=== PATIENT | female | born 1965 | race Hispanic/Latino ===

== ENCOUNTER → 2017-10-13 07:24 | Outpatient (CLI) | payer OTHER, SELFPAY ==
--- NOTE | 2017-10-13 | DI.RAD.S_ITS ---
PROCEDURE: FL BARIUM SWALLOW INDICATIONS: 52 year-old female with pharyngeal solid food dysphagia. COMPARISON: None. FINDINGS: Function: There is normal esophageal peristalsis. There is small elicited gastroesophageal reflux to the midesophagus with patient rollover. There is normal transit of a calibrated barium tablet through the esophagus into the stomach. Morphology: Air-contrast images demonstrate normal mucosal morphology of the pharynx and esophagus. Single contrast views show no esophageal strictures, extrinsic mass effects, or diverticula. A small hiatal hernia is present. Limited images of the stomach demonstrate normal appearance. IMPRESSION: 1. Small hiatal hernia, along with small elicited gastroesophageal reflux to the midesophagus during the examination. 2. No mucosal abnormalities of the pharynx or esophagus. Dictated by: Osbaldo Rodriguez M.D. on 10/13/2017 at 8:54 Approved by: Osbaldo Rodriguez M.D. on 10/13/2017 at 8:57
== END ==
PROVIDERS: Visit Provider Internal Medicine
DX: K21.9 Gastro-esophageal reflux disease without esophagitis (principal); R13.12 Dysphagia, oropharyngeal phase; K44.9 Diaphragmatic hernia without obstruction or gangrene
CPT/HCPCS: 74220

== ENCOUNTER 2018-01-24 07:32 | Day surgery (SDC) | payer OTHER, SELFPAY ==
--- NOTE | 2018-01-24 | PATH_ITS ---
[facility] Accession Number: [id number] . 01 Material submitted: . PART A: TRANSVERSE COLON POLYP AT 60 PART B: ASCENDING COLON POLYP PART C: DISTAL TRANSVERSE COLON POLYPS X2 . 02 Diagnosis: A. Biopsy Transverse Colon Polyp at 60 cm: Tubular adenoma involving single biopsy fragment. . B. Biopsy Polyp Ascending Colon: Tubular adenoma involving both biopsy fragments. . C. Biopsy Distal Transverse Colon Polyps: Tubular adenoma involving single biopsy fragment. Single polypoid-shaped fragment of colon mucosa consistent with prolapsed inflammatory polyp, negative for atypia. MRV/01/25/2018 . 02 Electronically signed: . Lc Smiley MD, Pathologist NPI- [id number] . 01 Gross description: . Received three formalin-filled containers, each labeled with the patient's name: . A. In a container labeled transverse colon polyp at 60, are two 0.3-0.5 cm portions of tissue, entirely submitted in cassette A. B. In a container labeled ascending colon polyp, are two 0.2-0.3 cm portions of tissue, entirely submitted in cassette B. C. In a container labeled distal transverse polyps x2, are two 0.2-0.3 cm portions of tissue, entirely submitted in cassette C. ([id number]) /FRR . 02 Pathologist provided ICD-10: D12.2 . 02 CPT . 530092, 126359, 440959 Performed at: 01 [facility] [address] [id number] MD Lj Persaud MD Phone: [phone] Performed at: 02 [facility] [id number] [place] [id number] MD Edwar Quinteros MD Phone: [phone]
[2018-01-24 08:00] VITALS: BP 100/59; PULSE 74; RESP 15; TEMP 36.3; O2SAT 100
[2018-01-24] MEDS: SODIUM CHLORIDE 0.9% 1,000 ML 200 ML IV ×2 (08:00→11:23)
--- NOTE | 2018-01-24 11:04 | PM.HP.1 ---
History of Present Illness Date Patient Seen: 01/24/18 Time Patient Seen: 11:04 Chief complaint: colonoscopy [id number] Narrative: 52-year-old female who presents for colorectal screening. She has no history of any prior screening examination. On further history today she denies any gastrointestinal symptoms. No recent nausea, vomiting, anorexia, unintended weight loss, abdominal pain, change in bowel habits, diarrhea, constipation, melena, hematochezia, or bright red blood per rectum. Patient History Medical History Gastroesophageal reflux disease (Acute) History of ovarian cyst (Acute) Surgical History History of section (Acute) History of dilatation and curettage (Acute) History of oophorectomy, unilateral (Acute) Family & Social History Social History: household members spouse Meds Allergies Allergy/AdvReac Type Severity Reaction Status Date / Time No Known Drug Allergies Allergy Verified 01/24/18 08:15 Review of Systems Review of Systems All systems reviewed & are unremarkable except as noted in HPI and below Exam Vital Signs (past 8 hours): - 01/24/18 08:00 Temperature 97.4 F L Pulse Rate 74 Respiratory Rate 15 Blood Pressure 100/59 L Pulse Oximetry 100 Oxygen Delivery Method Room Air Narrative Exam Narrative: Well-nourished well-developed female in no acute distress. Alert oriented x3. is at the bedside for my entire visit. Sclera nonicteric Neck is supple Regular rate and rhythm Abdomen soft, nondistended, nontender, no masses Extremities show no clubbing, cyanosis, or edema Objective Labs Labs: No recent laboratory studies or radiographic studies for review Assessment & Plan Plan: Assessment/Plan Narrative: 52-year-old female requiring colorectal screening by age criteria. Colonoscopy is recommended. Technical details of the procedure were discussed. Risks, benefits, alternatives were explained. Risks including but not limited to sedation, aspiration, bleeding, pain, missed lesion, incomplete examination, need for further radiographic studies, colonic perforation, need for major abdominal surgery, and all attendant risks of major surgery were explained at length. All questions were answered to her satisfaction, and she voiced understanding. Consent was placed on the chart. We will proceed as above.
--- NOTE | 2018-01-24 11:08 | PM.PREOP ---
Pre-operative Note Interval Note Pre-op Check: Yes History & Physical Reviewed by Physician, Yes Exam Performed and Yes History & Physical exam performed today by Physician Changes: No H&P completed within 30 days and has changed as indicated here:: Patient seen and examined today. Proceed with colonoscopy for colorectal screening purposes. History and physical examination documented and placed on the chart today. ASA Class (for procedural sedation): I
[2018-01-24] MEDS: MIDAZOLAM 5 MG/5 ML VIAL IV (11:15)
[2018-01-24] MEDS: fentaNYL 250 MCG/5 ML INJ IV (11:16)
--- NOTE | 2018-01-24 11:37 | PM.OP.ENDO ---
Operative Date/Time/Diagnoses Date of procedure: 01/24/18 Time of procedure: 11:37 Pre-op diagnosis: Colorectal screening Post-op diagnosis: other (Multiple colon polyps) Procedure & Clinicians Study performed: 1. Sedation per surgeon 2. Colonoscopy with cold forceps polypectomies Same procedure as scheduled: Yes Indications: 52-year-old female who presents for colorectal screening. Colonoscopy is recommended. Surgeon: Paco Mar Procedure Notes SCOAP/Timeout: Yes Procedure in detail: After obtaining informed consent, the patient was brought to the GI suite and placed in the left lateral decubitus position on the examination table. After placement of appropriate monitors, the patient was given incremental doses of Versed and Fentanyl until an appropriate level of sedation was achieved. A time out was held per SCOAP protocol. A digital rectal examination was performed and did not reveal any masses or obstructing lesions. The colonoscope was gently passed into the patient's anus and the entire colon navigated to the level of the cecum with minimal difficulty. Terminal ileum was intubated and noted to be grossly normal. Once in the cecum, the scope was withdrawn being sure to go before and beyond all mucosal folds and prominences and get an excellent examination. The findings are noted above. At the level of the rectal vault, the scope was retroflexed and the internal anal canal was examined. The scope was straightened and air aspirated from the colon. The instrument was removed from the patient's body and the procedure was concluded. The patient was allowed to awaken from sedation without difficulty and taken to the post-anesthesia care unit in good condition. Scope withdrawal time: 12:53 min Sedation minutes: 27 Findings: polyp Specimen(s): other (1. Transverse colon polyp at 60 cm in 2. Ascending colon polyp 3. Distal transverse colon polyps x2) Complications: none Recommendations: Colonscopy in 5 years, High fiber diet and Will call with biopsy results Plan for aftercare: 1. Discharge to home Follow up: as needed Disposition: PACU
[2018-01-24 11:43] VITALS: BP 96/59; PULSE 78; RESP 10; TEMP 36.6; O2SAT 100
[2018-01-24 11:46] VITALS: BP 95/59; PULSE 86; RESP 9; O2SAT 100
[2018-01-24 11:50] VITALS: BP 95/59; PULSE 79; RESP 10; TEMP 36.7; O2SAT 100
[2018-01-24 12:01] VITALS: BP 100/59; PULSE 74; RESP 15; TEMP 36.3; O2SAT 100
== END 2018-01-24 12:12 | disposition home or self-care (01) ==
PROVIDERS: Visit Provider Surgery
PROC: 0DJD8ZZ Inspection of Lower Intestinal Tract, Via Natural or Artificial Opening Endoscopic (ICD-10-PCS; CPT 45378; principal; 2018-01-24 09:45)
DX: Z12.11 Encounter for screening for malignant neoplasm of colon (principal); D12.3 Benign neoplasm of transverse colon; D12.2 Benign neoplasm of ascending colon
CPT/HCPCS: 45380; 99152; 99153; J2250; J3010

== ENCOUNTER 2022-01-06 05:55 | Day surgery (SDC) | payer OTHER, MEDICAID, SELFPAY ==
[2021-12-26 13:11] VITALS: BMI 19.8
[2022-01-06] VITALS (7 sets, daily range): BP systolic 90–115; BP diastolic 33–73; PULSE 60–80; RESP 15–16; TEMP 35.9–37; O2SAT 99–100; BMI 19.8
--- NOTE | 2022-01-06 | PATH_ITS ---
[facility] Accession Number: [id number] . 01 Material submitted: . gallbladder - GALLBLADDER . 01 Diagnosis: Gallbladder, Cholecystectomy: Chronic cholecystitis and cholelithiasis. V 01/08/2022 1134 Local . 01 Electronically signed: . Kamilla Olson MD, Pathologist NPI- [id number] . 01 Gross description: . Received in formalin labeled with the patient's name and gallbladder consists of an intact gallbladder measuring 6.5 x 2.3 x 2.3 cm. The serosa is green and smooth while the hepatic surface is rough and unremarkable. The cystic duct is received closed with a clip, is inked blue, and no pericystic lymph node is identified. Opening the specimen reveals multiple black, roughened calculi obstructing the cystic duct measuring up to 1.1 cm in greatest dimension, along with dark green viscous bile. The mucosa is dark green and velvety with no areas of discoloration, polyps or lesions identified, and the [place] average 0.2 cm thick. [employer] sections to include the cystic duct margin and full-thickness sections are submitted in cassette A1. ([id number]) /V 01/07/2022 1821 Local . 01 Pathologist provided ICD-10: K81.1, K80.10 . 01 CPT . 125317 Specimen Comment: A courtesy copy of this report has been sent to [phone] Performed at: 01 [facility] [address] [place] [id number] MD Lj Persaud MD Phone: [phone]
[2022-01-06] MEDS: LACTATED RINGERS 1,000 ML 100 ML IV (07:07)
[2022-01-06 07:20] LABS: COVID19 -Nasal RAPID Negative (Negative)
[2022-01-06] MEDS: ACETAMINOPHEN 325 MG TABLET 650 MG PO (07:47)
--- NOTE | 2022-01-06 07:49 | PM.HP.1 ---
History of Present Illness History of Present Illness Date Patient Seen: 01/06/22 Time Patient Seen: 07:49 Chief complaint: SDC Narrative: Tasha is a 56-year-old woman with gallstones, symptomatic cholelithiasis. See the office note from October for more details. Patient History Medical History (Updated 12/26/21 @ 13:15 by Margie Mckeon RN) Arthritis Elevated cholesterol Gastroesophageal reflux disease Headache, migraine History of ovarian cyst History of UTI Kidney stones Surgical History History of section History of dilatation and curettage History of oophorectomy, unilateral History of right oophorectomy (~2009) Family & Social History Social History: household members spouse Tobacco & Substance use: Smoking Status Former smoker alcohol intake current alcohol intake frequency 0-2 drinks per day Substance Use Type does not use Meds Home Medications and Allergies Home Medications Medication Instructions Recorded Confirmed Type aspirin 81 mg capsule 81 mg DAILY 01/06/22 01/06/22 History multivitamin 1 tab DAILY 01/06/22 01/06/22 History Allergies Allergy/AdvReac Type Severity Reaction Status Date / Time No Known Drug Allergies Allergy Verified 01/06/22 06:40 Exam Vital Signs (past 8 hours): - 01/06/22 06:47 Temperature 98.6 F Pulse Rate 73 Respiratory Rate 16 Blood Pressure 115/73 Pulse Oximetry 100 Oxygen Delivery Method Room Air Oxygen Delivery Method Room Air Const General: comfortable Resp Effort & Inspection: normal respiratory effort Objective Labs Labs: Laboratory Results - last 24 hr 01/06/22 06:30 SARS-CoV-2 (PCR) Negative Assessment & Plan Assessment and plan (1) Cholelithiasis: Qualifiers: Cholelithiasis location: gallbladder Cholecystitis presence: without cholecystitis Biliary obstruction: without biliary obstruction Qualified Code(s): K80.20 - Calculus of gallbladder without cholecystitis without obstruction Status: Acute Plan 56-year-old woman with gallstones. We reviewed the risks and benefits of laparoscopic cholecystectomy and she would like to proceed. Time Spent With Patient Critical Care time: I spent a total of [] minutes of critical care time on this patient's care today; this time is exclusive of procedural time.
[2022-01-06] MEDS: CEFAZOLIN 2 GM/100 ML PREMIX 100 ML IV (07:57)
[2022-01-06] MEDS: LIDOCAINE 1% W/EPI 20 ML INJ (08:14)
[2022-01-06] MEDS: BUPIVACAINE 0.5% (PF) VIAL 30 ML INJ (08:14)
--- NOTE | 2022-01-06 08:33 | SUR.OPER ---
Supine on padded OR bed, head on pillow, safety belt at thigh, left arm padded and tucked at side. Right arm secured on padded arm board <90 degrees abduction. Legs uncrossed. Padded footboard in place. Tape over blanket to secure lower legs. Position approved by anesthesia and surgeon
--- NOTE | 2022-01-06 09:19 | P.OP_ITS ---
Operative Date/Time/Diagnoses Date of procedure: 01/06/22 Time of procedure: 09:31 Pre-op diagnosis: Symptomatic cholelithiasis Post-op diagnosis: same Procedure & Clinicians Procedure: Laparoscopic cholecystectomy Same procedure as scheduled: Yes Surgeon: Pablo Daniels Operative Notes Procedure in detail: The patient was given preoperative antibiotic. The patient was brought to the operating room, placed on the table in the supine position. General endotracheal anesthesia was induced. The abdomen was prepped and draped. A time-out was performed. We made a 1 cm infraumbilical incision where a prior scar was located. We dissected down to the base of the umbilical stalk using cautery. We grasped the umbilical stalk with a Frank clamp to elevate the abdominal wall. We scored the fascia in the midline with cautery 1 cm. We pierced the peritoneum with a Peon clamp. The Nain port was placed and the abdomen was insufflated to 15 mmHg. A 5 mm 30 degree laparoscopic was inserted. There was no evidence of any injury from the entry. Next, we placed 5 mm ports in the subxiphoid position and right upper quadrant at the midclavicular line and anterior axillary line. Patient was then positioned in reverse Trendelenburg and the table was tilted to the left. The gallbladder was grasped at the dome and retracted cephalad. There were some adhesions of mesenteric tissue to the right liver which were carefully dissected with cautery to allow full retraction of the gallbladder. We then dissected the cystic structures with a combination of hook cautery and blunt dissection. We obtained a critical view. We placed clips on the cystic duct and 2 branches of the cystic artery and divided the cystic duct and artery sharply between the clips. There was some bleeding from the main branch of the cystic artery and a third clip was applied to achieve hemostasis. The gallbladder was then dissected off the liver and placed in a specimen retrieval bag. We irrigated the right upper quadrant and all the aspirate returned clear. We then removed the [address] vision we removed the Nain port. We then injected some local into the fascia and closed the fascia with 2 interrupted 0 Vicryl sutures. The skin incisions were closed with 4-0 Monocryl and Steri-Strips were applied. Band- Aids were applied over the Steri-Strips. EBL: 50 mL Specimen: Gallbladder Post-operative Condition: stable Disposition: PACU
[2022-01-06] MEDS: OXYCODONE IR 5 MG TABLET PO (09:50)
[2022-01-06] MEDS: ONDANSETRON 4 MG/2 ML INJ IV (09:52)
== END 2022-01-06 10:28 | disposition home or self-care (01) ==
PROVIDERS: PCP Nurse Practitioner; Referring Provider Surgery; Visit Provider Surgery
PROC: 0FT44ZZ Resection of Gallbladder, Percutaneous Endoscopic Approach (ICD-10-PCS; CPT 47562; principal; 2022-01-06 07:45)
DX: K80.10 Calculus of gallbladder with chronic cholecystitis without obstruction (principal); K21.9 Gastro-esophageal reflux disease without esophagitis
CPT/HCPCS: 47562; 87635; 99281; C9803; J0330; J0690; J1100; J1885; J2250; J2405; J2704; J3010

== ENCOUNTER 2022-01-06 18:49 | Emergency (ER) | payer OTHER, MEDICAID, SELFPAY ==
[2022-01-06 19:01] VITALS: BP 122/72; PULSE 76; RESP 16; TEMP 36.9; O2SAT 97; BMI 19.8
--- NOTE | 2022-01-06 20:16 | ED.RECABL ---
HPI - Recheck/Abnormal Lab/Rx General Chief Complaint: Recheck/Abnormal Lab/Rx Stated Complaint: Bleeding from incision site Time Seen by Provider: 01/06/22 19:27 History of Present Illness HPI narrative: 56-year-old woman who had a laparoscopic cholecystectomy with Dr. Daniels this morning. Was doing well and then noticed quite a bit of bleeding from the right trocar site. It has not resolved with pressure. She is not having any pain, dizziness, hypotension but comes in for further evaluation. Related Data Home Medications Medication Instructions Recorded Confirmed aspirin 81 mg capsule 81 mg DAILY 01/06/22 01/06/22 multivitamin 1 tab DAILY 01/06/22 01/06/22 Previous Rx's Medication Instructions Recorded hydrocodone 5 mg-acetaminophen 325 1 tab PO Q8H PRN pain #10 tabs 01/06/22 mg tablet Allergies Allergy/AdvReac Type Severity Reaction Status Date / Time No Known Drug Allergies Allergy Verified 01/06/22 06:40 Patient History Medical History (Updated 01/06/22 @ 20:20 by Jenniffer Nguyen MD) Arthritis Elevated cholesterol Gastroesophageal reflux disease Headache, migraine History of ovarian cyst History of UTI Kidney stones Surgical History (Updated 01/06/22 @ 20:17 by Jenniffer Nguyen MD) History of section History of dilatation and curettage History of oophorectomy, unilateral History of right oophorectomy (~2009) Hx of cholecystectomy Social History household members: spouse Smoking Status: Former smoker alcohol intake: current Smoking Status: Former smoker alcohol intake frequency: 0-2 drinks per day Substance Use Type: does not use Exam Initial Vital Signs Initial Vital Signs: Vital Signs Temperature 98.4 F 01/06/22 19:01 Pulse Rate 76 01/06/22 19:01 Respiratory Rate 16 01/06/22 19:01 Blood Pressure 122/72 01/06/22 19:01 Pulse Oximetry 97 01/06/22 19:01 Oxygen Delivery Method 01/06/22 19:01 General: Alert appropriate in no acute distress Respiratory: Able to speak in full sentences, no obvious respiratory distress Skin: No obvious rashes, warm and dry Abdomen: Surgical dressings in place. The right-sided trocar wound with continued bleeding, developing hematoma around the area, no redness and not tender. Neurologic: Grossly intact no obvious asymmetries or abnormalities Psych: appropriate insight and affect, cooperative Procedures Laceration Repair Bleeding from surgical trocar site, right side the abdomen: Local Anesthetic: lidocaine 1% and with epi Amount of anesthesia used (mL): 2 Pre-repair: wound explored and deep structures intact Skin layer closed with: nylon Skin layer suture size: 3-0 Number of sutures: 1 Technique: horizontal mattress (For hemostasis. Hemostasis obtained.) Course Vital Signs Vital signs: Vital Signs - 8 hr 01/06/22 19:01 Temperature 98.4 F Pulse Rate 76 Respiratory Rate 16 Blood Pressure 122/72 Pulse Oximetry 97 Oxygen Delivery Method Room Air MDM - Recheck/Abnormal Lab/Rx MDM Narrative Medical decision making narrative: Post cholecystectomy this morning with bleeding from the right trocar site. It is not stopping with pressure it does appear to be superficial she is not having intra-abdominal pain. It a single deep horizontal stitch was placed with 3-0 nylon for hemostasis and glue was placed over the wound itself. Briefly reviewed with Dr. Daniels and he will follow-up. Patient is safe for discharge Discharge Plan Departure Patient Disposition: Home Clinical Impression: Post-op bleeding Qualifiers: Surgical complication system/body Area: digestive system Procedure type: digestive system Qualified Code(s): K91.840 - Postprocedural hemorrhage of a digestive system organ or structure following a digestive system procedure Activity Restrictions/Additional Instructions: Thank you for coming in today The small trocar site was bleeding a bit, it was all quite superficial. I put a deeper stitch in and re-glued the skin itself. The bleeding seems to be controlled. I did talk to Dr. Daniels and he is aware of the ER visit. Please call his office tomorrow to see when he would like to see you to removed that external suture. I wish you the best Prescriptions: No Action aspirin 81 mg Capsule 81 mg DAILY multivitamin 1 tab DAILY hydrocodone-acetaminophen 5-325 mg tablet 1 tab PO Q8H PRN (Reason: pain) Qty: 10 0RF Referrals: Cassy Voss ARNP [Primary Care Provider] - Visit Report Forms: Patient Portal/API
== END 2022-01-06 20:25 | disposition home or self-care (01) ==
PROVIDERS: Emergency Provider Emergency Medicine; PCP Nurse Practitioner
DX: K91.840 Postprocedural hemorrhage of a digestive system organ or structure following a digestive system procedure (principal)

== ENCOUNTER 2022-01-15 10:54 | Emergency (ER) | payer OTHER, MEDICAID, SELFPAY ==
[2022-01-15] VITALS (7 sets, daily range): BP systolic 111–151; BP diastolic 59–92; PULSE 61–76; RESP 16–20; TEMP 36.7; O2SAT 99–100; BMI 19.8
[2022-01-15 11:50] LABS: Add Manual Diff / Slide Review NO; Basophils Absolute Auto 0 /uL (0-100); Basophils Percent Auto 0.8 % (0-2); Eosinophils Absolute Auto 100 /uL (0-450); Eosinophils Percent Auto 2.4 % (2-4); Hematocrit 40.7 % (36-46); Hemoglobin 13.9 g/dL (12.0-16.0); Lymphocytes Absolute Auto 1500 /uL (1100-4500); Lymphocytes Percent Auto 24.6 % (25-40); Mean Corpuscular HGB Conc 34.3 % (30-36); Mean Corpuscular Volume 90.5 fL (80-100); Monocytes Absolute Auto 500 /uL (0-900); Monocytes Percent Auto 7.9 % (3-14); Neutrophils Absolute Auto 3900 /uL (1500-7000); Neutrophils Percent Auto 64.3 % (50-75); Platelet Count 246 X10^3/uL (150-400); Red Cell Distribution Width 12.5 % (11.6-14.8)
[2022-01-15 12:03] LABS: Alanine Aminotransferase 49 IU/L (<35); Albumin 4.6 g/dL (3.5-5.0); Albumin Globulin Ratio 1.4 (1.0-2.8); Alkaline Phosphatase 64 U/L (38-126); Aspartate Aminotransferase 70 IU/L (14-36); BUN Creatinine Ratio 17.5 (6-22); Bilirubin Total 0.5 mg/dL (0.2-1.3); Blood Urea Nitrogen 11 mg/dL (7-17); Calcium 9.4 mg/dL (8.4-10.2); Carbon Dioxide 29 mmol/L (22-32); Chloride 102 mmol/L (98-107); Estimated Glomerular Filt Rate > 60 mL/min (>60); Globulin 3.4 g/dL (1.7-4.1); Glucose 78 mg/dL (70-100); HEMOLYSIS < 15 (0-50); Lipase 226 U/L (23-300); Sodium 141 mmol/L (137-145)
--- NOTE | 2022-01-15 12:27 | DI.US.S_ITS ---
PROCEDURE: US ABDOMEN LIMITED INDICATIONS: PAIN 9 DAYS POST DARCIE TECHNIQUE: Real-time focused scanning was performed of the abdomen, with image documentation. COMPARISON: None. FINDINGS: Liver measures 12.9 cm. There are 2 foci of decreased echogenicity within the posterior right lobe the largest measuring 2.0 x 2.0 x 1.8 cm. Gallbladder is surgically absent. No fluid identified within the gallbladder fossa. Common bile duct measures 5.3 cm. IMPRESSION: Cholecystectomy without fluid in the gallbladder fossa. Simple hepatic cysts. Dictated by: Concepcion Mejia M.D. on 01/15/2022 at 13:09 Approved by: Concepcion Mejia M.D. on 01/15/2022 at 13:10
[2022-01-15] MEDS: ACETAMINOPHEN 325 MG TABLET 650 MG PO (13:18)
[2022-01-15] MEDS: KETOROLAC 30 MG/ML VIAL 15 MG IM (13:19)
[2022-01-15 14:06] LABS: Appearance Urine UA CLEAR; Bilirubin Urine UA NEGATIVE (NEGATIVE); Color Urine UA YELLOW; Glucose Urine UA NEGATIVE (Negative); Ketones Urine UA NEGATIVE (NEGATIVE); Leukocyte Esterase Urine UA NEGATIVE (NEGATIVE); Nitrite Urine UA NEGATIVE (Negative); Occult Blood Urine UA TRACE-LYSED (Negative); Protein Urine UA NEGATIVE (Negative); Urobilinogen Urine UA 0.2 E.U./dL (0.2)
--- NOTE | 2022-01-15 14:07 | ED.ABDPAIN ---
HPI - Abdominal Pain <ARIS Panda - Last Filed: 01/20/22 18:49> General Chief Complaint: Abdominal Pain Stated Complaint: Not feeling well post gallbladder surg on 01/06 Time Seen by Provider: 01/15/22 12:27 Source: patient Mode of arrival: Family Vehicle Related Data Home Medications Medication Instructions Recorded Confirmed aspirin 81 mg capsule 81 mg DAILY 01/06/22 01/06/22 multivitamin 1 tab DAILY 01/06/22 01/06/22 Previous Rx's Medication Instructions Recorded hydrocodone 5 mg-acetaminophen 325 1 tab PO Q8H PRN pain #10 tabs 01/06/22 mg tablet mupirocin 2 % topical ointment 1 applic topical DAILY #15 grams 01/15/22 Allergies Allergy/AdvReac Type Severity Reaction Status Date / Time No Known Drug Allergies Allergy Verified 01/06/22 06:40 Patient History <ARIS Panda - Last Filed: 01/20/22 18:49> Medical History (Updated 01/15/22 @ 14:18 by ARIS Panda) Arthritis Elevated cholesterol Gastroesophageal reflux disease Headache, migraine History of ovarian cyst History of UTI Kidney stones Surgical History (Updated 01/15/22 @ 14:18 by ARIS Panda) History of section History of dilatation and curettage History of oophorectomy, unilateral History of right oophorectomy (~2009) Hx of cholecystectomy Social History household members: spouse Smoking Status: Former smoker alcohol intake: current Smoking Status: Former smoker tobacco type: cigarettes alcohol intake frequency: holidays/special occasions only Substance Use Type: does not use Exam <ARIS Panda - Last Filed: 01/20/22 18:49> Initial Vital Signs Initial Vital Signs: Vital Signs Temperature 98.1 F 01/15/22 11:07 Pulse Rate 76 01/15/22 11:07 Respiratory Rate 16 01/15/22 11:07 Blood Pressure 151/92 H 01/15/22 11:07 Pulse Oximetry 100 01/15/22 11:07 Oxygen Delivery Method 01/15/22 11:07 <Katelynn Chadwick DO - Last Filed: 01/20/22 19:19> Initial Vital Signs Initial Vital Signs: Vital Signs Temperature 98.1 F 01/15/22 11:07 Pulse Rate 76 01/15/22 11:07 Respiratory Rate 16 01/15/22 11:07 Blood Pressure 151/92 H 01/15/22 11:07 Pulse Oximetry 100 01/15/22 11:07 Oxygen Delivery Method 01/15/22 11:07 Course <ARIS Panda - Last Filed: 01/20/22 18:49> Orders Ordered: Discontinued Medications Acetaminophen (Acetaminophen 325 Mg Tablet) 650 mg PO NOW ONE Stop: 01/15/22 13:04 Last Admin: 01/15/22 13:18 Dose: 650 mg Documented By: IMELDA Ketorolac Tromethamine (Ketorolac 30 Mg/Ml Vial) 15 mg IM NOW ONE Stop: 01/15/22 13:04 Last Admin: 01/15/22 13:19 Dose: 15 mg Documented By: IMELDA Vital Signs Vital signs: Vital Signs - 8 hr 01/15/22 11:07 01/15/22 12:30 01/15/22 12:30 Temperature 98.1 F Pulse Rate 76 70 Respiratory Rate 16 Blood Pressure 151/92 H 127/59 L Pulse Oximetry 100 99 Oxygen Delivery Method Room Air <Katelynn Chadwick DO - Last Filed: 01/20/22 19:19> Orders Ordered: Discontinued Medications Acetaminophen (Acetaminophen 325 Mg Tablet) 650 mg PO NOW ONE Stop: 01/15/22 13:04 Last Admin: 01/15/22 13:18 Dose: 650 mg Documented By: IMELDA Ketorolac Tromethamine (Ketorolac 30 Mg/Ml Vial) 15 mg IM NOW ONE Stop: 01/15/22 13:04 Last Admin: 01/15/22 13:19 Dose: 15 mg Documented By: SB Vital Signs Vital signs: Vital Signs - 8 hr 01/15/22 11:07 01/15/22 12:30 01/15/22 12:30 Temperature 98.1 F Pulse Rate 76 70 Respiratory Rate 16 Blood Pressure 151/92 H 127/59 L Pulse Oximetry 100 99 Oxygen Delivery Method Room Air MDM - Abdominal Pain <ARIS Panda - Last Filed: 01/20/22 18:49> Lab Data Result diagrams: 01/15/22 11:35 01/15/22 11:35 Labs: Lab Results 01/15/22 01/15/22 01/15/22 Range/Units 11:35 11:35 11:35 WBC 6.0 (4.5-11.0) X10^3/uL RBC 4.50 (4.0-5.2) X10^6/uL Hgb 13.9 (12.0-16.0) g/dL Hct 40.7 (36-46) % MCV 90.5 (80-100) fL MCH 31.0 (26-34) PG MCHC 34.3 (30-36) % RDW 12.5 (11.6-14.8) % Plt Count 246 (150-400) X10^3/uL Neut % (Auto) 64.3 (50-75) % Lymph % (Auto) 24.6 L (25-40) % Schleicher % (Auto) 7.9 (3-14) % Eos % (Auto) 2.4 (2-4) % Baso % (Auto) 0.8 (0-2) % Neut # (Auto) 3900 (1121-9986) /uL Lymph # (Auto) 1500 (5363-7488) /uL Schleicher # (Auto) 500 (0-900) /uL Eos # (Auto) 100 (0-450) /uL Baso # (Auto) 0 (0-100) /uL Sodium 141 (137-145) mmol/L Potassium 4.0 (3.4-5.1) mmol/L Chloride 102 (98-107) mmol/L Carbon Dioxide 29 (22-32) mmol/L BUN 11 (7-17) mg/dL Creatinine 0.63 (0.52-1.04) mg/dL Estimated GFR > 60 (>60) mL/min BUN/Creatinine Ratio 17.5 (6-22) Glucose 78 (70-100) mg/dL Lactate 1.8 (0.7-2.1) mmol/L Calcium 9.4 (8.4-10.2) mg/dL Total Bilirubin 0.5 (0.2-1.3) mg/dL AST 70 H (14-36) IU/L ALT 49 H (<35) IU/L Alkaline Phosphatase 64 (38-126) U/L C-Reactive Protein (<1.0) mg/dL Total Protein 8.0 (6.3-8.2) g/dL Albumin 4.6 (3.5-5.0) g/dL Globulin 3.4 (1.7-4.1) g/dL Albumin/Globulin Ratio 1.4 (1.0-2.8) Lipase 226 (23-300) U/L Procalcitonin (<0.5) ng/mL Urine Color Urine Appearance Urine pH (4.5-8.0) Ur Specific Hart (1.000-1.035) Urine Protein (Negative) Urine Glucose (UA) (Negative) g/dL Urine Ketones (NEGATIVE) Urine Occult Blood (Negative) Urine Nitrate (Negative) Urine Bilirubin (NEGATIVE) Urine Urobilinogen (0.2) E.U./dL Ur Leukocyte Esterase (NEGATIVE) Urine RBC (0-5/HPF) Urine WBC (0-5/HPF) Ur Squamous Epith Cells (0-5/HPF) Urine Bacteria (None) Ur Culture Indicated? 01/15/22 01/15/22 01/15/22 Range/Units 11:35 11:35 13:30 WBC (4.5-11.0) X10^3/uL RBC (4.0-5.2) X10^6/uL Hgb (12.0-16.0) g/dL Hct (36-46) % MCV (80-100) fL MCH (26-34) PG MCHC (30-36) % RDW (11.6-14.8) % Plt Count (150-400) X10^3/uL Neut % (Auto) (50-75) % Lymph % (Auto) (25-40) % Schleicher % (Auto) (3-14) % Eos % (Auto) (2-4) % Baso % (Auto) (0-2) % Neut # (Auto) (8043-3713) /uL Lymph # (Auto) (3230-4351) /uL Schleicher # (Auto) (0-900) /uL Eos # (Auto) (0-450) /uL Baso # (Auto) (0-100) /uL Sodium (137-145) mmol/L Potassium (3.4-5.1) mmol/L Chloride (98-107) mmol/L Carbon Dioxide (22-32) mmol/L BUN (7-17) mg/dL Creatinine (0.52-1.04) mg/dL Estimated GFR (>60) mL/min BUN/Creatinine Ratio (6-22) Glucose (70-100) mg/dL Lactate (0.7-2.1) mmol/L Calcium (8.4-10.2) mg/dL Total Bilirubin (0.2-1.3) mg/dL AST (14-36) IU/L ALT (<35) IU/L Alkaline Phosphatase (38-126) U/L C-Reactive Protein < 0.5 (<1.0) mg/dL Total Protein (6.3-8.2) g/dL Albumin (3.5-5.0) g/dL Globulin (1.7-4.1) g/dL Albumin/Globulin Ratio (1.0-2.8) Lipase (23-300) U/L Procalcitonin < 0.03 (<0.5) ng/mL Urine Color Yellow Urine Appearance Clear Urine pH 7.0 (4.5-8.0) Ur Specific Hart 1.010 (1.000-1.035) Urine Protein Negative (Negative) Urine Glucose (UA) Negative (Negative) g/dL Urine Ketones Negative (NEGATIVE) Urine Occult Blood Trace-lysed (Negative) Urine Nitrate Negative (Negative) Urine Bilirubin Negative (NEGATIVE) Urine Urobilinogen 0.2 (0.2) E.U./dL Ur Leukocyte Esterase Negative (NEGATIVE) Urine RBC 0-1/hpf (0-5/HPF) Urine WBC None seen (0-5/HPF) Ur Squamous Epith Cells None seen (0-5/HPF) Urine Bacteria None seen (None) Ur Culture Indicated? Cult not indicated Point of care testing: Urine Dip Bedside Urine Glucose Negative Bedside Urine Bilirubin - Negative Bedside Urine Ketone - Negative Urine Specific Hart 1.015 Bedside Urine Occult Blood - Negative Bedside Urine pH 7.0 Bedside Urine Protein - Negative Bedside Urine Urobilinogen - Negative Bedside Urine Nitrite - Negative Bedside Urine Leukocytes - Negative Esterase Imaging Data US - abdomen: Radiologist's Impression: PROCEDURE: US ABDOMEN LIMITED ? INDICATIONS:? PAIN 9 DAYS POST DARCIE ? TECHNIQUE:? Real-time focused scanning was performed of the abdomen, with image documentation.? ? COMPARISON:? None. ? FINDINGS:? Liver measures 12.9 cm.? There are 2 foci of decreased echogenicity within the posterior right lobe the largest measuring 2.0 x 2.0 x 1.8 cm.? Gallbladder is surgically absent.? No fluid identified within the gallbladder fossa.? Common bile duct measures 5.3 cm. ? IMPRESSION:? ? Cholecystectomy without fluid in the gallbladder fossa.? ? ? Simple hepatic cysts.? ? Dictated by: Concepcion Mejia M.D. on 01/15/2022 at 13:09 ? ? Approved by: Concepcion Mejia M.D. on 01/15/2022 at 13:10 ? [facility] Narrative Medical decision making narrative: This is a 56-year-old female who presents to the emergency department status post laparoscopic cholecystectomy on 01/09/2022 with chief complaint of fatigue and poor appetite and denies any fever, chills, dysuria, nausea vomiting, changes to her stool or other focal complaint. Her urine today was negative for WBCs, leukocyte esterase or RBCs, lab work overall is unremarkable, she has mildly elevated AST and ALT of 70 and 49 respectively without any priors to compare to, CRP is less than 0.5, procalcitonin, and no leukocytosis, anemia, or point tenderness on exam. She had an ultrasound of her right upper quadrant today which is negative for fluid within the gallbladder fossa, common bile duct measures 5.3 cm, it also showed status post cholecystectomy. Liver measured 12.9 cm. Encourage patient to use Tylenol as needed for pain, she denies any epigastric pain, heartburn symptoms, indigestion, diarrhea constipation or other symptom. She has scheduled follow-up with Dr. Daniels in 6 days, a consult was placed so he is aware she was in the emergency department and she understands to come back to the emergency department for any worsening or changes. She is encouraged to stay hydrated and advance her diet as tolerated. Patient is appropriate and amenable to discharge home. Vital signs are stable on repeat examination is unremarkable. Patient has been informed of results. Patient has been given strict return to ER precautions for any new or worsening symptoms. Patient understands to follow up closely with outpatient providers as instructed. Patient understands plan and agrees to discharge home. All questions and concerns answered at this time. <Katelynn Chadwick, DO - Last Filed: 01/20/22 19:19> Lab Data Labs: Lab Results 01/15/22 01/15/22 01/15/22 Range/Units 11:35 11:35 11:35 WBC 6.0 (4.5-11.0) X10^3/uL RBC 4.50 (4.0-5.2) X10^6/uL Hgb 13.9 (12.0-16.0) g/dL Hct 40.7 (36-46) % MCV 90.5 (80-100) fL MCH 31.0 (26-34) PG MCHC 34.3 (30-36) % RDW 12.5 (11.6-14.8) % Plt Count 246 (150-400) X10^3/uL Neut % (Auto) 64.3 (50-75) % Lymph % (Auto) 24.6 L (25-40) % Schleicher % (Auto) 7.9 (3-14) % Eos % (Auto) 2.4 (2-4) % Baso % (Auto) 0.8 (0-2) % Neut # (Auto) 3900 (2456-0340) /uL Lymph # (Auto) 1500 (4536-3196) /uL Schleicher # (Auto) 500 (0-900) /uL Eos # (Auto) 100 (0-450) /uL Baso # (Auto) 0 (0-100) /uL Sodium 141 (137-145) mmol/L Potassium 4.0 (3.4-5.1) mmol/L Chloride 102 (98-107) mmol/L Carbon Dioxide 29 (22-32) mmol/L BUN 11 (7-17) mg/dL Creatinine 0.63 (0.52-1.04) mg/dL Estimated GFR > 60 (>60) mL/min BUN/Creatinine Ratio 17.5 (6-22) Glucose 78 (70-100) mg/dL Lactate 1.8 (0.7-2.1) mmol/L Calcium 9.4 (8.4-10.2) mg/dL Total Bilirubin 0.5 (0.2-1.3) mg/dL AST 70 H (14-36) IU/L ALT 49 H (<35) IU/L Alkaline Phosphatase 64 (38-126) U/L C-Reactive Protein (<1.0) mg/dL Total Protein 8.0 (6.3-8.2) g/dL Albumin 4.6 (3.5-5.0) g/dL Globulin 3.4 (1.7-4.1) g/dL Albumin/Globulin Ratio 1.4 (1.0-2.8) Lipase 226 (23-300) U/L Procalcitonin (<0.5) ng/mL Urine Color Urine Appearance Urine pH (4.5-8.0) Ur Specific Hart (1.000-1.035) Urine Protein (Negative) Urine Glucose (UA) (Negative) g/dL Urine Ketones (NEGATIVE) Urine Occult Blood (Negative) Urine Nitrate (Negative) Urine Bilirubin (NEGATIVE) Urine Urobilinogen (0.2) E.U./dL Ur Leukocyte Esterase (NEGATIVE) Urine RBC (0-5/HPF) Urine WBC (0-5/HPF) Ur Squamous Epith Cells (0-5/HPF) Urine Bacteria (None) Ur Culture Indicated? 01/15/22 01/15/22 01/15/22 Range/Units 11:35 11:35 13:30 WBC (4.5-11.0) X10^3/uL RBC (4.0-5.2) X10^6/uL Hgb (12.0-16.0) g/dL Hct (36-46) % MCV (80-100) fL MCH (26-34) PG MCHC (30-36) % RDW (11.6-14.8) % Plt Count (150-400) X10^3/uL Neut % (Auto) (50-75) % Lymph % (Auto) (25-40) % Schleicher % (Auto) (3-14) % Eos % (Auto) (2-4) % Baso % (Auto) (0-2) % Neut # (Auto) (8691-6036) /uL Lymph # (Auto) (2814-2476) /uL Schleicher # (Auto) (0-900) /uL Eos # (Auto) (0-450) /uL Baso # (Auto) (0-100) /uL Sodium (137-145) mmol/L Potassium (3.4-5.1) mmol/L Chloride (98-107) mmol/L Carbon Dioxide (22-32) mmol/L BUN (7-17) mg/dL Creatinine (0.52-1.04) mg/dL Estimated GFR (>60) mL/min BUN/Creatinine Ratio (6-22) Glucose (70-100) mg/dL Lactate (0.7-2.1) mmol/L Calcium (8.4-10.2) mg/dL Total Bilirubin (0.2-1.3) mg/dL AST (14-36) IU/L ALT (<35) IU/L Alkaline Phosphatase (38-126) U/L C-Reactive Protein < 0.5 (<1.0) mg/dL Total Protein (6.3-8.2) g/dL Albumin (3.5-5.0) g/dL Globulin (1.7-4.1) g/dL Albumin/Globulin Ratio (1.0-2.8) Lipase (23-300) U/L Procalcitonin < 0.03 (<0.5) ng/mL Urine Color Yellow Urine Appearance Clear Urine pH 7.0 (4.5-8.0) Ur Specific Hart 1.010 (1.000-1.035) Urine Protein Negative (Negative) Urine Glucose (UA) Negative (Negative) g/dL Urine Ketones Negative (NEGATIVE) Urine Occult Blood Trace-lysed (Negative) Urine Nitrate Negative (Negative) Urine Bilirubin Negative (NEGATIVE) Urine Urobilinogen 0.2 (0.2) E.U./dL Ur Leukocyte Esterase Negative (NEGATIVE) Urine RBC 0-1/hpf (0-5/HPF) Urine WBC None seen (0-5/HPF) Ur Squamous Epith Cells None seen (0-5/HPF) Urine Bacteria None seen (None) Ur Culture Indicated? Cult not indicated Point of care testing: Urine Dip Bedside Urine Glucose Negative Bedside Urine Bilirubin - Negative Bedside Urine Ketone - Negative Urine Specific Hart 1.015 Bedside Urine Occult Blood - Negative Bedside Urine pH 7.0 Bedside Urine Protein - Negative Bedside Urine Urobilinogen - Negative Bedside Urine Nitrite - Negative Bedside Urine Leukocytes - Negative Esterase Discharge Plan Departure Patient Disposition: Home Clinical Impression: Status post cholecystectomy Fatigue Qualifiers: Fatigue type: other Qualified Code(s): R53.83 - Other fatigue Instructions: DI for Fatigue, Cholecystectomy -- Laparoscopic Surgery Activity Restrictions/Additional Instructions: *You have been diagnosed with postop fatigue, your blood counts today are normal without signs of anemia. There is no elevation in your white blood cell count or signs of infection on your lab work today. Your total bilirubin was normal at 0.5, your AST is mildly elevated at 70 and ALT is mildly elevated at 49, I suspect that these were higher preoperatively, the rest of your lab work appears normal and your urine does not show signs of infection. Your ultrasound of your abdomen today shows that you had a cholecystectomy without any fluid in the gallbladder fossa and the common bile duct measured 5.3 cm. Please follow-up with Dr. Daniels at your scheduled appointment, use topical mupirocin ointment to prevent infection over your wounds and ensure that you clean out your belly button a couple times a week. You for coming in, please stay hydrated, advance your diet as tolerated. Please come back for any worsening of your symptoms. You can take Tylenol 650 mg every 6 hours throughout the day and try to not take it more than 3 times each day, hydration is of priority. Please allow your body time to heal and do not over work yourself throughout the day. *What to do: *Please continue to take your regular medications as directed. [ x New medication prescriptions sent to your pharmacy: [[facility] ] [ ] New medication written as a paper prescription [ ] No new medications given *Please follow up with your primary care provider in 2-3 days, call for an appointment. Let them know you were seen in the Emergency Department and that we asked that you be seen for follow-up. We will electronically transmit a record of today's note if your PCP is in our system *If you do not have a primary care provider please contact [phone] to establish care with one of the [facility] primary care providers. *Return to Emergency Department if you should have any new, worsening, or concerning symptoms, such as [fever greater than 101F, chills, worsening pain, persistent vomiting or other bothersome symptoms]. Prescriptions: New mupirocin 2 % ointment 1 applic topical DAILY Qty: 15 0RF No Action aspirin 81 mg Capsule 81 mg DAILY multivitamin 1 tab DAILY hydrocodone-acetaminophen 5-325 mg tablet 1 tab PO Q8H PRN (Reason: pain) Qty: 10 0RF Referrals: Cassy Voss ARNP [Primary Care Provider] - Pablo Daniels MD [Physician] - Visit Report Forms: Patient Portal/API <Katelynn Chadwick DO - Last Filed: 01/20/22 19:19> Cosign ED Attending Cosignature Attestation: I was immediately available in the department for consultation. Documentation has been reviewed. I agree with assessment and plan.
[2022-01-15 14:12] LABS: Bacteria Urine None Seen; Culture Indicated Urine Cult Not Indicated; RBC Urine 0-1/HPF (0-5/HPF); Squamous Epithelial Cell Urine None Seen (0-5/HPF); WBC Urine None Seen (0-5/HPF)
[2022-01-15 14:25] LABS: Lactate (Lactic Acid) 1.8 mmol/L (0.7-2.1)
[2022-01-15 14:29] LABS: C-Reactive Protein Quant < 0.5 mg/dL (<1.0)
[2022-01-15 14:43] LABS: Procalcitonin < 0.03 ng/mL (<0.5)
== END 2022-01-15 14:41 | disposition home or self-care (01) ==
PROVIDERS: Emergency Medicine; Emergency Provider Nurse Practitioner Critical Care Medicine; PCP Nurse Practitioner
DX: Z98.890 Other specified postprocedural states (principal); R53.83 Other fatigue; Z90.49 Acquired absence of other specified parts of digestive tract
CPT/HCPCS: 36415; 76705; 80053; 81001; 81003; 83605; 83690; 84145; 85025; 86140; 93005; 96372; 99284; J1885

== ENCOUNTER 2023-02-25 06:12 | Day surgery (SDC) | payer OTHER, MEDICAID, SELFPAY ==
--- NOTE | 2023-02-25 | PATH_ITS ---
[facility] Accession Number: [id number] No. of containers..01 Tissue . 01 Material submitted: . colon - DESCENDING POLYP . 01 Diagnosis: Ascending Colon Polyp, Biopsy: Tubular adenoma. MRV 03/03/2023 1543 Local . 01 Electronically signed: . Kamilla Olson MD, Pathologist NPI- [id number] . 01 Gross description: . DESCENDING POLYP: Received in formalin is 4 fragment(s) of ramos, soft tissue measuring 0.9 x 0.5 x 0.1 cm to 0.6 x 0.3 x 0.1 cm submitted entirely in 1 cassette(s) /AAY 02/26/2023 0610 Local . 01 Pathologist provided ICD-10: D12.4 . 01 CPT . 844668 Specimen Comment: A courtesy copy of this report has been sent to [phone] Performed at: 01 [facility] [address] [place] [address], [place], [place] [id number] MD Lj Persaud MD Phone: [phone]
[2023-02-25] MEDS: LACTATED RINGERS 1,000 ML 100 ML IV (07:00)
[2023-02-25 07:01] VITALS: BP 105/66; PULSE 68; RESP 17; TEMP 36.4; O2SAT 100; BMI 20.2
--- NOTE | 2023-02-25 07:42 | P.HP_ITS ---
History of Present Illness History of Present Illness Date Patient Seen: 02/25/23 Time Patient Seen: 07:42 Chief complaint: SDC Narrative: Tasha is a 57-year-old woman who presents for her colonoscopy because she is due for one. Her last colonoscopy was in [address] Mar and polyps were removed. She also has had some episodes of rectal bleeding this year. [facility] Medical History Arthritis Elevated cholesterol Gastroesophageal reflux disease Headache, migraine History of ovarian cyst History of UTI Kidney stones Surgical History History of section History of dilatation and curettage History of oophorectomy, unilateral History of right oophorectomy (~2009) Hx of cholecystectomy Social History household members: spouse Smoking Status: Former smoker alcohol intake: current Meds Home Medications and Allergies Home Medications Medication Instructions Recorded Confirmed Type aspirin 81 mg capsule 81 mg DAILY 01/06/22 02/25/23 History multivitamin 1 tab DAILY 01/06/22 02/25/23 History cetirizine 10 mg capsule (Zyrtec) 10 mg PO DAILY PRN Cough 01/11/23 02/25/23 History Allergies Allergy/AdvReac Type Severity Reaction Status Date / Time No Known Drug Allergies Allergy Verified 02/25/23 06:52 Exam Vital Signs (past 8 hours): - 02/25/23 07:01 Temperature 97.6 F Pulse Rate 68 Respiratory Rate 17 Blood Pressure 105/66 Pulse Oximetry 100 Oxygen Delivery Method Room Air Oxygen Delivery Method Room Air Const General: healthy appearing Assessment & Plan Assessment and plan (1) Personal history of colonic polyps: Status: Acute (2) Rectal bleeding: Status: Acute Plan We reviewed the risks and benefits of colonoscopy and she would like to proceed.
--- NOTE | 2023-02-25 08:17 | PM.OP.COLON ---
Operative Date/Time/Diagnoses Date of procedure: 02/25/23 Time of procedure: 08:17 Pre-op diagnosis: Colon cancer screening Post-op diagnosis: same Procedure & Clinicians Study performed: Colonoscopy Same procedure as scheduled: Yes Surgeon: Pablo Daniels Procedure Notes Procedure in detail: Surgeon: Pablo Daniels MD Anesthesia: Shalini Garcia DO Procedure: The patient was brought to the endoscopy suite, placed in left lateral decubitus position. The patient was connected to monitoring devices. A time-out was performed. Sedation was administered. Once the patient was adequately sedated, a digital rectal exam was performed and was normal. The scope was then inserted and advanced to the cecum where the appendiceal orifice was identified and photographed. The terminal ileum was intubated and no abnormalities were seen. The scope was then slowly withdrawn over greater than 6 minutes. The mucosa was thoroughly inspected. There was a 4 mm polyp in the proximal descending colon removed with a cold snare. The scope was retroflexed in the rectum. No other abnormalities were found. The scope was straightened and removed. The patient was awakened and brought to recovery. Scope withdrawal time: 13 minutes Sedation time: 18 minutes EBL: 3 mL Findings: 4 mm polyp in the proximal descending colon Post-procedure Disposition: PACU
[2023-02-25 08:19] VITALS: BP 94/39; PULSE 84; RESP 15; TEMP 36.3; O2SAT 95
[2023-02-25 08:24] VITALS: BP 102/61; PULSE 82; RESP 12; O2SAT 100
[2023-02-25 08:29] VITALS: BP 110/71; PULSE 77; RESP 13; O2SAT 100
== END 2023-02-25 08:40 | disposition home or self-care (01) ==
PROVIDERS: PCP Nurse Practitioner; Referring Provider Surgery; Visit Provider Surgery
PROC: 0DJD8ZZ Inspection of Lower Intestinal Tract, Via Natural or Artificial Opening Endoscopic (ICD-10-PCS; CPT 45378; principal; 2023-02-25 07:45)
DX: Z12.11 Encounter for screening for malignant neoplasm of colon (principal); Z86.010 Personal history of colon polyps; D12.2 Benign neoplasm of ascending colon
CPT/HCPCS: 45385; J2704